=== PATIENT | male | born 1950 | race Caucasian/White ===

== ENCOUNTER → 2016-06-03 | Outpatient (CLI) | payer OTHER ==
[~2016-06-03] MED LIST: ANTI-ITCH28 GM TOP; LIPITOR40 MG PO; PEG-3350 AND4000 ML PO; PRILOSEC20 MG PO; TOPROL XL50 MG PO
== END | disposition short-term general hospital (02) ==
LOC: CLRHEU 09:16
DX: M79.641 Pain in right hand (principal); M79.642 Pain in left hand; R60.0 Localized edema; M15.9 Polyosteoarthritis, unspecified; R73.9 Hyperglycemia, unspecified; M54.9 Dorsalgia, unspecified; M11.232 Other chondrocalcinosis, left wrist; M11.231 Other chondrocalcinosis, right wrist; Z80.42 Family history of malignant neoplasm of prostate